=== PATIENT | male | born 1950 | race Caucasian/White ===

== ENCOUNTER → 2016-08-17 | Outpatient (CLI) | payer OTHER ==
--- NOTE | 2016-08-17 15:40 | DI ---
LEFT FOOT, 08/17/2016 3:02 PM: Clinical History: Hallux rigidus of the left foot. Previous Exam: None at this facility. 3 weightbearing views are submitted. There is no acute soft tissue, osseous, or joint abnormality. De generative arthritic changes are present in the first metatarsophalangeal joint with bony spurring in volving the distal head of the first metatarsal bone on the dorsal and medial margins. Vascular calci fications are present in the tibialis posterior artery in a pattern that is typical of patients who h ave diabetes. 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
--- NOTE | 2016-08-17 16:14 | DI ---
RIGHT FOOT, 08/17/2016 3:02 PM: Clinical History: Hallux rigidus of the right foot. Previous Exam: None at this facility. 3 weightbearing views are submitted. There is no acute soft tissue, osseous, or joint abnormality. De generative arthritic changes are present in the first metatarsophalangeal joint with bony spurring pr esent along the dorsal medial margin of the distal head of the first metatarsal bone. Vascular calcif ications are present in the posterior tibialis artery in a pattern typical of patients who have diabe piero. 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
== END ==
LOC: MOB RAD 15:05
PROVIDERS: ATTEND Podiatrist Foot & Ankle Surgery
DX: M79.672 Pain in left foot (principal); M79.671 Pain in right foot; M20.22 Hallux rigidus, left foot; M20.21 Hallux rigidus, right foot; M77.51 Other enthesopathy of right foot and ankle; M19.072 Primary osteoarthritis, left ankle and foot; M19.071 Primary osteoarthritis, right ankle and foot
CPT/HCPCS: 73630

== ENCOUNTER → 2016-09-11 | Outpatient (CLI) | payer OTHER ==
--- NOTE | 2016-09-11 13:45 | EKG ---
[address] [address] Measurements Intervals [place] Rate: 57 P: 63 UT: 180 QRS: 59 QRSD: 112 T: 57 QT: 406 QTc: 401 Interpretive Statements SINUS RHYTHM MODERATE INTRAVENTRICULAR CONDUCTION DELAY [110+ ms QRS DURATION] No previous ECG available for comparison Electronically Signed On 09-11-16 16:19:04 MST by Marcus Martin [email or web address]
== END ==
LOC: MOB EKG 13:30
PROVIDERS: ATTEND Specialist
DX: Z01.810 Encounter for preprocedural cardiovascular examination (principal); M72.2 Plantar fascial fibromatosis; I25.10 Atherosclerotic heart disease of native coronary artery without angina pectoris; I45.89 Other specified conduction disorders
CPT/HCPCS: 93005; 93010

== ENCOUNTER 2016-09-22 07:55 | Day surgery (SDC) | payer OTHER ==
[~2016-09-22 07:55] MED LIST: Clindamycin 900mg (Premix) 50 ML IV ONE; LIDOCAINE W/ SODIUM BICARB 0.5 ML SYR ONE; Lactated Ringers 1,000 ML PRIMARY IV ONE
[2016-09-22] MEDS ORDERED: MIDAZOLAM 5 MG/1 ML ONE ×2 (09:29→10:06)
[2016-09-22] MEDS ORDERED: fentaNYL Inj 100 MCG/2 ML VIAL ONE (09:29)
[2016-09-22] MEDS ORDERED: BETAMET ACET/BETAMET NA PH 6 MG/1 ML - 5 ML ONE (10:09)
[2016-09-22] MEDS ORDERED: BUPivacaine Inj 0.5% PF (5mg/ml) 10ml vial ONE (10:10)
[2016-09-22] MEDS ORDERED: BUPivacaine Liposome/PF (Exparel) Inj 20ml vial INFIL ONE ×2 (10:10→10:15)
[2016-09-22] MEDS ORDERED: diphenhydrAMINE 50 MG/1 ML VIAL ONE (10:24)
--- NOTE | 2016-09-22 10:49 | CRNA.PROCE ---
Central Neuraxis Block Placemt - - Safety Measures: Time Out Taken, Site Verified - - Type of Block: Subarachnoid (--SAB as primary anesthetic for podiatry surgery- Bilateral feet.) Reason for Block: Surgical Moniters Used During Block: SPO2, NIBP Sedation Used - Enter Amount Used in Comment Field: Midazolam (mg): Yes (3 plus 2 mg), Fentanyl (mcg): Yes (80 mcgs iv, 20 mcgs Intrathecal) Positioning: Sitting Skin Prep Used: ChloroPrep (Twice) Draped: Yes Skin Infiltration - Enter Amount Used in Comment Field: 1% Xylocaine (mL): Yes ( 1 ml ) Introducer User: 23 Gauge Spinal Needle Used: 25 Latanya 80 mm (2 passes-1 Dural puncture.) Local Anesthetic - Enter Amount Used in Comment Field: 0.75 % Bupivacaine with Dextrose (ml): Yes (2 ml )
[2016-09-22] MEDS ORDERED: NEOMYCIN/BACITRACIN/POLYMYXIN 0.9 GM OINT PACKET TOPICAL ONE (10:57)
[2016-09-22] MEDS ORDERED: Lactated Ringers 1,000 ML PRIMARY IV ONE ×2 (11:10→11:12)
--- NOTE | 2016-09-22 12:44 | GEN.OPNOTE ---
Operative Report Surgeon: Jayson Acevedo DPM Anesthesia Type: Regional (spinal), Local (with post operative Exparel subcutaneously.), MAC Anesthesia Provider: Belinda Carcamo CRNA Surgery Date: 09/22/16 Preoperative Diagnosis: 1. Left hallux rigidus. 2. Left foot pain. 3. Right hallux rigidus. 4. Right foot pain. 5. Right subcalcaneal bursitis. Postoperative Diagnosis: 1. Left hallux rigidus. 2. Left foot pain. 3. Right hallux rigidus. 4. Right foot pain. 5. Right subcalcaneal bursitis. Procedure: 1. Left modified Ramandeep bunionectomy. 2. Right modified Ramandeep bunionectomy. 3. Right plantar calcaneal bursae injection with Celestone soluspan 6mg. Estimated Blood Loss (mL): 15 (A pneumatic cuff was used about the left ankle at 250mm Hg pressure for 48 minutes, and then on the right for 38 minutes.) Fluids: 900 mg of clindamycin preoperatively. 900 mL lactated Ringer's. Complications: None Findings at Surgery: The exostosis of both first metatarsophalangeal joints were slightly different than others I have performed or seen, with areas of exostosis which were like plateaus, otherwise hallux rigidus exostosis with loss of joint cartilage of the dorsal half of the first tarsophalangeal joints bilaterally. The left foot being slightly worse than the right foot. A sample of the exostosis was submitted to pathology. Description of Procedure: The patient was brought to the operating room and placed in the supine position. They had already been given a spinal, and MAC was continued. Both feet were prepped and draped in the usual sterile fashion. A timeout was performed. Attention was initially directed to the left foot. The foot was then exsanguinated with an elastic Esmarch, after which a pneumatic cuff was inflated about the ankle to 250 mmHg pressure. Attention was directed to the dorsal first metatarsophalangeal joint on the right foot. A linear incision was made just lateral to the extensor hallucis longus tendon of the proximally 4 cm length. This was deepened by sharp and blunt dissection to level of the joint capsule. Joint capsule was also incised longitudinally and retracted as the fibers are released from the exostosis. Significant exostosis was noted around the first metatarsophalangeal joint. The first metatarsal head exostosis was removed with a sagittal saw, dorsally, dorsal laterally, dorsal medially, and medially. This was checked with C-arm and modified as needed. The wound was copiously irrigated. Range of motion was noted to be increased. After the first set of C-arm photos there is still a bony block which was found , and reduced with a sagittal saw. Next a rasp was used to smooth the edge of the cuts. The wound was copiously irrigated. Bone wax was applied to the first metatarsal head and again the wound was copiously irrigated.. Exparel was then injected around into the subcutaneous tissues of the first ray. Closure was performed with 4-0 Vicryl for the joint capsule and subcutaneous tissues. And 4-0 nylon for the skin. This was reinforced with Mastisol and Steri-Strips. A dressing consisted of Xeroform, gauze, Kerlix, and a Coban dressing. The pneumatic cuff was released from the left ankle after 48 minutes total time. Attention was then directed to the right foot. The plantar calcaneal bursa was palpated, and then injected with 6 mg of Celestone Soluspan plus 0.5% Marcaine plain. The right foot was then exsanguinated with an elastic Esmarch, after which a pneumatic cuff was inflated about the ankle to 250 mmHg pressure.The pneumatic cuff was now inflated about the right ankle. Attention was directed to the dorsal first metatarsophalangeal joint on the right foot. A linear incision was made just lateral to the extensor hallucis longus tendon of the proximally 4 cm length. This was deepened by sharp and blunt dissection to level of the joint capsule. Joint capsule was also incised longitudinally and retracted as the fibers are released from the exostosis. Significant exostosis was noted around the first metatarsophalangeal joint. The first metatarsal head exostosis was removed with a sagittal saw, dorsally, dorsal laterally, dorsal medially, and medially. This was checked with C-arm and modified as needed. The wound was copiously irrigated. Range of motion was noted to be increased. After the first set of C-arm photos there is still a bony block which was found , and reduced with a sagittal saw. Next a rasp was used to smooth the edge of the cuts. The wound was copiously irrigated. Bone wax was applied to the first metatarsal head and again the wound was copiously irrigated.. Exparel was then injected around into the subcutaneous tissues of the first ray. Closure was performed with 4-0 Vicryl for the joint capsule and subcutaneous tissues. And 4-0 nylon for the skin. This was reinforced with Mastisol and Steri-Strips. A dressing consisted of Xeroform, gauze, Kerlix, and a Coban dressing. The pneumatic cuff was released from the right ankle after 38 minutes total time. Capillary return was noted all toes. The patient was returned recovery.
[2016-09-22] MEDS ORDERED: NORMAL SALINE 10 ML SYRINGE FLUSH IVP PRN (12:48)
[2016-09-22] MEDS: FLUMAZENIL 0.1 MG/1 ML - 5 ML IVP ONE ×2 (15:00→15:05)
[2016-09-22] MEDS ORDERED: FLUMAZENIL 0.1 MG/1 ML - 5 ML IVP PRN (15:20)
[2016-09-22 15:36] VITALS: RESP 14
[2016-09-22 16:25] VITALS: TEMP 97.5
--- NOTE | 2016-09-23 19:59 | DI ---
LEFT FOOT, 09/22/2016 12:48 PM: Clinical History: Hallux rigidus of the left foot. Previous Exam: 08/17/2016. 3 views are submitted. Resection of the bony spurs involving the distal head of the first metatarsal bone have been performed. There is arthritic disease of the first metatarsophalangeal joint. The deshawn avril of the examination is normal. Reading: Status post surgical resection of the bony spurs involving the distal head of the first metatarsal tashi ne. Arthritic changes are present in the first metatarsophalangeal joint.
--- NOTE | 2016-09-23 20:05 | DI ---
RIGHT FOOT, 09/22/2016 12:51 PM: Clinical History: Hallux rigidus of the right foot. Previous Exam: 08/17/2016. 3 views are submitted. The patient is status post resection of the bony spurs of the distal head of t he first metatarsal bone. Arthritic changes are present in the first metatarsophalangeal joint. Reading: Status post resection of the bony spurs of the distal head of the first metatarsal bone. Degenerative arthritis is present in the first metatarsophalangeal joint.
== END 2016-09-22 16:15 | disposition home or self-care (01) ==
LOC: SDSC 07:55
PROVIDERS: ATTEND Podiatrist Foot & Ankle Surgery
DX: M20.22 Hallux rigidus, left foot (principal); M79.672 Pain in left foot; M77.51 Other enthesopathy of right foot and ankle; M20.21 Hallux rigidus, right foot
CPT/HCPCS: 28289; 64782; 73630 ×2; 76000; C9290; J0702; J1200; J3010; J2250; J3490; J7120